=== PATIENT | male | born 1970 | race Hispanic/Latino ===

== ENCOUNTER 2025-03-16 13:53 | Emergency (ER) | payer BC, SELFPAY ==
[2025-03-16] VITALS (7 sets, daily range): BP systolic 124–152; BP diastolic 65–75; PULSE 88–98
[2025-03-16 14:26] LABS: % Basophils 0.4 % (0-2); % Eosinophils 1.8 % (0-6); % Immature Granulocytes 1.1 % (0-0.5); % Lymphocytes 11.8 % (20.5-51.1); % Monocytes 10.8 % (1.7-9.3); % Neutrophils 74.1 % (42.2-75.2); Absolute Eosinophils 0.1 10^3/uL (0-0.7); Absolute Immature Granulocytes 0.1 10^3/uL (0-0.05); Absolute Lymphocytes 0.9 10^3/uL (1.2-3.4); Absolute Monocytes 0.8 10^3/uL (0.1-0.6); Absolute Neutrophils 5.4 10^3/uL (1.4-6.5); Hemoglobin 12.6 g/dL (13.0-18.0); Mean Corp Hgb Conc. 33.2 g/dL (33.0-37.0); Mean Corpuscular Hgb 25.6 pg (27.0-31.0); Mean Corpuscular Volume 77.1 fL (80.0-94.0); Nucleated Red Blood Cells % 0 % (-); Platelet Count 195 10^3/uL (130-400); Red Blood Cell Count 4.93 10^6/uL (4.70-6.10); Red Cell Dist. Width 12.7 % (11.5-14.5); White Blood Cell Count 7.2 10^3/uL (4.8-10.8)
[2025-03-16 14:38] LABS: ALT (SGPT) 54 U/L (0-50); AST (SGOT) 38 U/L (17-59); Albumin 4.1 g/dl (3.5-5.0); Alkaline Phosphatase 78 U/L (38-126); Blood Urea Nitrogen 42 mg/dl (9-20); Calcium 9.2 mg/dl (8.4-10.2); Carbon Dioxide 29 mmol/L (22-30); Chloride 106 mmol/L (98-107); Glucose 87 mg/dl (70-99); Potassium 4.6 mmol/L (3.5-5.1); Sodium 140 mmol/L (135-145); Total Bilirubin 0.6 mg/dl (0.2-1.3); Total Protein 6.9 g/dl (6.3-8.2); eGFR > 60.00
[2025-03-16] MEDS: NSS 1000 IV (17:18)
[2025-03-16 17:54] LABS: Troponin I 0.016 ng/ml
--- NOTE | 2025-03-16 19:15 | ED.GENMED ---
History of Present Illness
General
Chief Complaint: Fainting Sensation
Source: patient
Exam Limitations: none
Time Seen by Provider: 03/16/25 16:46
History of Present Illness
History of Present Illness:
54-year-old male insulin-dependent diabetic with history of gastric bypass surgery presents after near passing out episode while at work. 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 He got tunnel vision and everything
started to look white. There is no chest pain nausea vomiting or diaphoresis. He noted a slight headache. Since then his lightheaded sensation has resolved but he feels tired. No recent fever. No other complaints at this time
Phy Exam
Physical Exam
Physical Exam:
General: Well-appearing male no acute respiratory distress
HEENT: Normocephalic atraumatic
Heart: Regular rate and rhythm
Lungs: Clear no wheeze
Abdomen is soft nontender nondistended
Extremities: No cyanosis or edema
Course
Orders/Labs/Results
Orders:
Orders
03/16/25 14:00
EKG [Electrocardiogram (*1)] Urgent
Reason for Study: Vertigo / Dizzy
03/16/25 14:01
EKG- Treatment ONCE
03/16/25 14:05
Complete Blood Count/With Diff Urgent
Comprehensive Metabolic Panel Urgent
03/16/25 17:06
Orthostatic VS- Treatment ONCE
0.9% Sodium Chloride 1000 ml [Nss] 1,000 ml IV BOLUS
03/16/25 17:20
Troponin I Urgent
Abnormal Lab Results
03/16/25
14:05
Hgb 12.6 L g/dL
(13.0-18.0)
Hct 38.0 L %
(39.0-52.0)
MCV 77.1 L fL
(80.0-94.0)
MCH 25.6 L pg
(27.0-31.0)
Abs Immat Gran (auto) 0.1 H 10^3/uL
(0-0.05)
Absolute Lymphs (auto) 0.9 L 10^3/uL
(1.2-3.4)
Absolute Monos (auto) 0.8 H 10^3/uL
(0.1-0.6)
Immature Gran % 1.1 H %
(0-0.5)
Lymphocytes % 11.8 L %
(20.5-51.1)
Monocytes % 10.8 H %
(1.7-9.3)
BUN 42 H mg/dl
(9-20)
Creatinine 1.4 H mg/dL
(0.7-1.3)
ALT 54 H U/L
(0-50)
03/16/25 14:05
03/16/25 14:05
Vital Signs
Initial and Last Documented VS:
Initial Vital Signs
Temp Pulse Resp BP Pulse Ox
98.0 F 86 18 134/73 98
03/16/25 13:57 03/16/25 13:57 03/16/25 13:57 03/16/25 13:57 03/16/25 13:57
Last Documented Vital Signs
Temp Pulse Resp BP Pulse Ox
98.0 F 87 18 124/68 97
03/16/25 13:57 03/16/25 18:45 03/16/25 13:57 03/16/25 18:35 03/16/25 18:58
MDM/Problems Addressed
Differential Diagnosis Includes:
Near syncope. Question arrhythmia versus vasovagal event versus electrolyte abnormality or anemia
EKG shows sinus rhythm without ischemic changes
No arrhythmias noted on monitor. Labs reviewed no significant anemia or electrolyte abnormality. Patient describes feeling prior to the onset of this. I suspect vasovagal event. Orthostatic vital signs were checked no significant drop in the
blood pressure while standing. He did receive some fluids here. No indication for admission. Stable for discharge
*Critical Care Note
Total Time (30-74mins, 75-104mins- exclusive of procedures): Not Applicable
ED Attending Note
-
Portions of this chart may have been created with voice recognition software.� Occasional wrong word or��sound alike� substitutions may have occurred due to the inherent limitations of voice recognition software.
Discharge Plan
Departure
Patient Disposition: Home (Routine Discharge)
Date of Disposition: 03/16/25
Time of Disposition: 19:19
Patient with high blood pressure during this ER visit?: No
Discharge Problem:
Near syncope
Instructions: Near Fainting (DC)
Referrals:
Valerie Montague NP [Family Provider] -
Activity Restrictions/Additional Instructions:
Stay hydrated. Return if worse otherwise follow-up with your doctor
Interventions
Interventions:
*Risk Screen - Suicide Last Done: 03/16/25 13:57
*General Assessment Last Done: 03/16/25 13:57
*Neglect/Abuse Screening Last Done: 03/16/25 16:59
*ED- Fall Risk Assessment Last Done: 03/16/25 16:59
*ED COVID-19 Vaccine History Last Done: 03/16/25 17:10
ED- Cardiac Assessment Last Done: 03/16/25 16:59
ED- Neurological Assessment Last Done: 03/16/25 16:59
Discharge Date and Time
Print Language: GABONESE
== END 2025-03-16 21:08 | disposition home or self-care (01) ==
LOC: EMR 13:53
PROVIDERS: Physician Assistant; EMERGENCY PHYSICIAN Emergency Medicine; FAMILY PHYSICIAN Nurse Practitioner Gerontology
DX: R55 Syncope and collapse (principal); E11.9 Type 2 diabetes mellitus without complications; R42 Dizziness and giddiness; Z98.84 Bariatric surgery status
CPT/HCPCS: 99283; 96360; 80053; 84484; 85025; 93005

== ENCOUNTER 2025-03-21 16:51 | Emergency (ER) | payer BC, SELFPAY ==
[2025-03-21 17:04] VITALS: BP 161/84
[2025-03-21 17:19] LABS: % Basophils 0.6 % (0-2); % Eosinophils 2.7 % (0-6); % Immature Granulocytes 0.4 % (0-0.5); % Lymphocytes 13.1 % (20.5-51.1); % Neutrophils 78.2 % (42.2-75.2); Absolute Eosinophils 0.2 10^3/uL (0-0.7); Absolute Lymphocytes 0.9 10^3/uL (1.2-3.4); Absolute Monocytes 0.3 10^3/uL (0.1-0.6); Absolute Neutrophils 5.3 10^3/uL (1.4-6.5); Hematocrit 35.4 % (39.0-52.0); Hemoglobin 11.9 g/dL (13.0-18.0); Mean Corp Hgb Conc. 33.6 g/dL (33.0-37.0); Mean Corpuscular Hgb 25.8 pg (27.0-31.0); Mean Corpuscular Volume 76.6 fL (80.0-94.0); Mean Platelet Volume 9.5 fL (7.4-10.4); Nucleated Red Blood Cells % 0 % (-); Platelet Count 144 10^3/uL (130-400); Red Blood Cell Count 4.62 10^6/uL (4.70-6.10); Red Cell Dist. Width 13.1 % (11.5-14.5); White Blood Cell Count 6.7 10^3/uL (4.8-10.8)
[2025-03-21 17:48] LABS: ALT (SGPT) 68 U/L (0-50); AST (SGOT) 40 U/L (17-59); Albumin 3.7 g/dl (3.5-5.0); Alkaline Phosphatase 119 U/L (38-126); Blood Urea Nitrogen 46 mg/dl (9-20); Calcium 8.5 mg/dl (8.4-10.2); Carbon Dioxide 22 mmol/L (22-30); Chloride 111 mmol/L (98-107); Glucose 163 mg/dl (70-99); Potassium 4.7 mmol/L (3.5-5.1); Sodium 139 mmol/L (135-145); Total Bilirubin 0.5 mg/dl (0.2-1.3); Total Protein 6.5 g/dl (6.3-8.2); eGFR 47.91
[2025-03-21 20:11] VITALS: BP 149/85; BMI 41.9
[2025-03-21 20:39] LABS: Creatine Phosphokinase 59 U/L (55-170)
[2025-03-21 20:40] LABS: Erythrocyte Sed Rate 38 mm/hour (0-20)
--- NOTE | 2025-03-21 20:58 | ED.GENMED ---
History of Present Illness
General
Chief Complaint: Generalized Pain
Source: patient
Exam Limitations: none
Time Seen by Provider: 03/21/25 20:18
Nursing documentation reviewed up to this point in time: agreed with
History of Present Illness
History of Present Illness:
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
It waxes and wanes and is described as 'constant pressure' now 06/02. He also states he has been urinating dark urine and smaller amounts than usual.
Denies fever or chills. Denies chest pain or trouble breathing. Denies abdominal pain, N/V/D/C. No recent travel, no known sick contacts.
Patient meds: Insulin 20 units p.m.
Atorvastatin 5 mg
ASA 81 mg
Bupropion XL
Past History
Past History
ED Past Medical History: HTN, Hypercholesterolemia and IDDM
ED Past Surgical History: Other (Gastric sleeve 11/2024)
Review of Systems
Review of Systems
Allergies reviewed?: Yes
All Other Systems: ROS reviewed and negative except as documented in HPI and ROS
Constitutional: Denies fever
Respiratory: Denies trouble breathing
Cardiac: Denies chest pain
ABD/GI: Denies abdominal pain, nausea or vomiting
: Reports frequency and dark urine; Denies dysuria, flank pain or urgency
Musculoskeletal: Reports joint pain, joint swelling and other (Pain in arms and legs)
Skin: Reports no symptoms
Neurological: Reports no symptoms
Phy Exam
Physical Exam
Physical Exam:
GENERAL: No acute distress. A&Ox3.
CONSTITUTIONAL: Afebrile.
RESPIRATORY: Regular respirations, nonlabored, lungs clear.
CARDIOVASCULAR: Regular rate and rhythm, no murmurs, no rubs.
GI: Soft, nontender, normal BS
MUSCULOSKELETAL: Hands and feet are mildly swollen. Full range of motion of joints but with pain in the arms and the legs. No erythema. Moves with ease but with discomfort and ambulates well. Well perfused.
SKIN: Warm, dry, pink
PSYCH: Normal mood and affect. Well kept, interactive and appropriate
NEUROLOGIC: Awake, alert and oriented. No focal neurological deficits
Course
Orders/Labs/Results
Orders:
Orders
03/21/25 17:13
C-Reactive Protein Urgent
Comment: ADD ON
CMP [Comprehensive Metabolic Panel] Urgent
Complete Blood Count/With Diff Urgent
Creatine Phosphokinase Urgent
Comment: ADD ON
Erythrocyte Sed Rate Urgent
Comment: ADD ON
Rheumatoid Agglutinin Urgent
Comment: ADD ON
03/21/25 20:18
Add On- LAB Urgent
Tests Added?: CPK, CRP, Sed rate
03/21/25 21:05
Urinalysis Reflex To Culture Urgent
Date Specimen was Collected: 03/21/25
Time Specimen was Collected: 21:01
Urine Microscopic Reflex Cult Urgent
03/21/25 21:51
Dexamethasone [Decadron] 10 mg PO NOW STA
Oxycodone/Acetaminophen [Percocet 5/325] 1 tablet PO NOW STA
03/21/25 22:13
Add On- LAB Urgent
Comments:: RA factor
Tests Added?: Rheumatoid factor
Abnormal Lab Results
03/21/25 03/21/25
17:13 21:05
RBC 4.62 L 10^6/uL
(4.70-6.10)
Hgb 11.9 L g/dL
(13.0-18.0)
Hct 35.4 L %
(39.0-52.0)
MCV 76.6 L fL
(80.0-94.0)
MCH 25.8 L pg
(27.0-31.0)
Absolute Lymphs (auto) 0.9 L 10^3/uL
(1.2-3.4)
Neutrophils % 78.2 H %
(42.2-75.2)
Lymphocytes % 13.1 L %
(20.5-51.1)
ESR 38 H mm/hour
(0-20)
Chloride 111 H mmol/L
(98-107)
BUN 46 H mg/dl
(9-20)
Creatinine 1.7 H mg/dL
(0.7-1.3)
Glucose 163 H mg/dl
(70-99)
ALT 68 H U/L
(0-50)
C-Reactive Protein 51.70 H mg/L
(0.0-10.00)
Urine Ketones 1+ A
(Negative)
Urine Albumin (Reflex) 1+ A
(Neg - Trace)
03/21/25 17:13
03/21/25 17:13
Vital Signs
Initial and Last Documented VS:
Initial Vital Signs
Temp Pulse Resp BP Pulse Ox
98.3 F 91 19 161/84 98
03/21/25 17:04 03/21/25 17:04 03/21/25 17:04 03/21/25 17:04 03/21/25 17:04
Last Documented Vital Signs
Temp Pulse Resp BP Pulse Ox
98.5 F 85 18 154/81 99
03/21/25 20:11 03/21/25 21:59 03/21/25 21:59 03/21/25 21:59 03/21/25 21:59
MDM/Problems Addressed
Differential Diagnosis Includes:
Kidney failure, rhabdomyolysis, rheumatoid arthritis
MDM/Problems Addressed:
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
It waxes and wanes and is described as 'constant pressure' now 06/02. He also states he has been urinating dark urine and smaller amounts than usual.
Denies fever or chills. Denies chest pain or trouble breathing. Denies abdominal pain, N/V/D/C. No recent travel, no known sick contacts.
Afebrile, appears moderately uncomfortable
CBC: No clinically significant abnormality
CMP: Kidney functions are consistent with his previous but slightly worse. BUN/creat 46/1.7
Sed rate minimally elevated
CPK normal
CRP mild to moderately elevated
UA negative
Patient informed of his slightly worsening kidney functions. 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
Referred him to nephrology and rheumatology
Case discussed with Dr. Brody who recommends short burst of steroids for his pain and follow-up with a silk printer.
Patient is out of bed and ambulating well
Rx for prednisone sent to his pharmacy
Chronic conditions affecting care: DM and Kidney disease
*Critical Care Note
Total Time (30-74mins, 75-104mins- exclusive of procedures): Not Applicable
ED Attending Note
-
Portions of this chart may have been created with voice recognition software.� Occasional wrong word or��sound alike� substitutions may have occurred due to the inherent limitations of voice recognition software.
Discharge Plan
Departure
Patient Disposition: Home (Routine Discharge)
Date of Disposition: 03/21/25
Time of Disposition: 21:52
Patient with high blood pressure during this ER visit?: No
Condition: Fair
Discharge Problem:
Joint pain in both hands, Pain in joints of both feet, Arm and leg pain
Instructions: Muscle, joint, and bone pain - Discharge instructions
Prescriptions:
New
prednisone 20 mg tablet
40 mg PO DAILY Qty: 8 0RF
Referrals:
Nerissa Keen MD [Consulting Staff, Rheumatology]
UNKNOWN - PT DOES,NOT KNOW [Family Provider]
Janet Downey MD [Active, Nephrology]
Stand Alone Forms: Return to Work
Activity Restrictions/Additional Instructions:
As we discussed, your kidney function is worsening, please call and make appointment with the [facility] [employer].
I gave you the name of a [employer] Director that specializes in joint pains. Call and make appointment.
Call your family doctor tomorrow and move your appointment to tomorrow or Tuesday.
Let them know if the steroid (Prednisone) helped
I sent a prescription to prednisone to your pharmacy, started tomorrow as you were given a dose here tonight.
Prednisone can raise your blood sugar. Check your blood sugar twice daily while on the steroid.
Speak to your doctor tomorrow about possibly giving yourself more Insulin if you blood sugar goes above 200
We recommend that you stop the rosuvastatin and talk to your family doctor or hand finisher about that
Interventions
Interventions:
*Risk Screen - Suicide Last Done: 03/21/25 17:04
*General Assessment Last Done: 03/21/25 20:11
*Neglect/Abuse Screening Last Done: 03/21/25 17:04
*ED- Fall Risk Assessment Last Done: 03/21/25 20:11
*ED COVID-19 Vaccine History Last Done: 03/21/25 19:13
*Nursing Disposition Last Done: 03/21/25 22:25
Discharge Date and Time
Discharge Date/Time: 03/21/25 22:29
Print Language: COMORAN
[2025-03-21 21:15] LABS: Urine Albumin 1+ (Neg - Trace); Urine Bilirubin Negative (Negative); Urine Character Clear (Clear); Urine Color Yellow; Urine Glucose Negative (Negative); Urine Ketone 1+ (Negative); Urine Leukocyte Negative (Negative); Urine Nitrite Negative (Negative); Urine Occult Blood Negative (Negative); Urine Specific Gravity 1.015 (<1.030); Urine Urobilinogen Negative (Neg - 1+)
[2025-03-21 21:33] LABS: Urine Hyaline Cast 0-2 /LPF (0-2); Urine Red Blood Cell 0-2 /HPF (0-2); Urine White Cell 0-2 /HPF (0-5)
[2025-03-21] MEDS: DECADRON 10 MG PO (21:56)
[2025-03-21] MEDS: PERCOCET 5/325 1 TABLET PO (21:57)
[2025-03-21 21:59] VITALS: BP 154/81
[2025-03-25 13:52] LABS: Rheumatoid Agglutinin Positive (<10 IU)
[2025-03-25 14:06] LABS: Rheumatoid Agg. Semi-quant 128 IU
== END 2025-03-21 22:29 | disposition home or self-care (01) ==
LOC: EMR 16:51
PROVIDERS: Emergency Medicine; Registered Nurse; EMERGENCY PHYSICIAN Emergency Medicine
DX: M79.641 Pain in right hand (principal); M79.642 Pain in left hand; M79.603 Pain in arm, unspecified; M79.606 Pain in leg, unspecified; M25.50 Pain in unspecified joint; I10 Essential (primary) hypertension; E78.00 Pure hypercholesterolemia, unspecified; E11.9 Type 2 diabetes mellitus without complications; Z98.84 Bariatric surgery status
CPT/HCPCS: 99283; 80053; 81003; 81015; 82550; 85025; 85652; 86140; 86430; 86431